=== PATIENT | male | born 1975 | race Caucasian/White ===

== ENCOUNTER 2017-09-01 11:21 | Emergency (ER) | payer SELFPAY ==
[~2017-09-01] VITALS: Ht 175.3 cm; Wt 79.8 kg
[2017-09-01 11:27] VITALS: BP 150/75
--- NOTE | 2017-09-01 12:05 | NUR ---
Patient eloped from facility. ER MD notified.
== END 2017-09-01 12:10 | disposition left against medical advice (07) ==
LOC: ER 11:22
DX: Z53.21 Procedure and treatment not carried out due to patient leaving prior to being seen by health care provider (principal)
CPT/HCPCS: A4606; Z7610